=== PATIENT | female | born 1935 | race Caucasian/White ===

== ENCOUNTER 2021-03-10 08:22 | Inpatient (IN) ==
[2021-03-10] MEDS ORDERED: traZODone 50 MG TABLET PO PRN (18:22)
[2021-03-11] MEDS: *HR* OxyCODONE/APAP 5/325 TABLET PO PRN (01:12)
[2021-03-11 04:59] LABS: Basophils % 0.5 %; Eosinophils # 0.3 K/mcL (0.0-0.6); Eosinophils % 3.3 %; Hematocrit 39.1 % (35.3-44.9); Hemoglobin 12.6 g/dL (11.5-15.4); Immature Granulocytes % 0.5 % (0-4); Lymphocytes # 1.9 K/mcL (0.6-4.6); Lymphocytes % 24.7 %; Mean Corpuscular HGB Conc 32.2 g/dL (31.6-35.5); Mean Corpuscular Hemoglobin 29.4 pg (28.0-33.3); Mean Corpuscular Volume 91.1 fL (83.0-100.0); Mean Platelet Volume 10.3 fL (9.4-12.4); Monocytes # 0.8 K/mcL (0.0-1.3); Monocytes % 10.8 %; Neutrophils # 4.7 K/mcL (1.6-8.9); Platelet Count 142 K/mcL (140-400); Red Blood Count 4.29 M/mcL (3.82-4.97); Red Cell Distribution Width 13.4 % (11.5-14.5); Segmented Neutrophils % 60.2 %; White Blood Count 7.8 K/mcL (4.3-11.1)
[2021-03-11 05:15] LABS: Calcium 8.8 mg/dL (8.6-10.3); Potassium 4.9 mEq/L (3.5-5.1)
[2021-03-11] MEDS ORDERED: *HR* Enoxaparin 30 MG/0.3 ML SYRINGE SQ SCH (06:00)
[2021-03-11] MEDS: Cyanocobalamin (B-12) 1,000 MCG TABLET PO SCH (08:13)
[2021-03-11] MEDS: amLODIPine 5 MG TABLET PO SCH (08:13)
[2021-03-11] MEDS: Cholecalciferol (D-3) 1,000 UNIT (25MCG) TABLET PO SCH (08:13)
[2021-03-11] MEDS: Melatonin 3 MG TABLET PO PRN (20:20)
[2021-03-11] MEDS: traZODone 50 MG TABLET PO PRN (20:21)
[2021-03-12] MEDS: *HR* OxyCODONE/APAP 5/325 TABLET PO PRN ×3 (03:42→14:55)
[2021-03-12] MEDS: *HR* Enoxaparin 40 MG/0.4 ML SYRINGE SQ SCH (05:35)
[2021-03-12] MEDS: Cyanocobalamin (B-12) 1,000 MCG TABLET PO SCH (08:53)
[2021-03-12] MEDS: Cholecalciferol (D-3) 1,000 UNIT (25MCG) TABLET PO SCH (08:54)
[2021-03-12] MEDS: amLODIPine 5 MG TABLET PO SCH (08:54)
[2021-03-12] MEDS: polyethylene glycoL 3350 17 GM POWD.PACK PO PRN (15:19)
[2021-03-12] MEDS: Melatonin 3 MG TABLET PO PRN (20:12)
[2021-03-12] MEDS: traZODone 50 MG TABLET PO PRN (20:13)
[2021-03-12] MEDS: MOM Conc 10 ML UD.LIQ PO PRN (20:13)
[2021-03-13] MEDS: *HR* Enoxaparin 40 MG/0.4 ML SYRINGE SQ SCH (04:07)
[2021-03-13] MEDS: *HR* OxyCODONE/APAP 5/325 TABLET PO PRN ×3 (04:13→20:37)
[2021-03-13 05:14] LABS: Basophils # 0.1 K/mcL (0.0-0.2); Basophils % 0.9 %; Eosinophils # 0.2 K/mcL (0.0-0.6); Eosinophils % 2.1 %; Hematocrit 38.5 % (35.3-44.9); Hemoglobin 12.4 g/dL (11.5-15.4); Immature Granulocytes % 0.4 % (0-4); Lymphocytes # 1.7 K/mcL (0.6-4.6); Lymphocytes % 22.3 %; Mean Corpuscular HGB Conc 32.2 g/dL (31.6-35.5); Mean Corpuscular Volume 90.2 fL (83.0-100.0); Monocytes # 0.9 K/mcL (0.0-1.3); Monocytes % 11.1 %; Neutrophils # 4.8 K/mcL (1.6-8.9); Platelet Count 155 K/mcL (140-400); Red Blood Count 4.27 M/mcL (3.82-4.97); Red Cell Distribution Width 13.6 % (11.5-14.5); Segmented Neutrophils % 63.2 %; White Blood Count 7.7 K/mcL (4.3-11.1)
[2021-03-13 05:29] LABS: BUN/Creatinine Ratio 24 (6-26); Blood Urea Nitrogen 23 mg/dL (8-23); Calcium 8.7 mg/dL (8.6-10.3); Carbon Dioxide 29 mEq/L (23-29); Chloride 102 mEq/L (98-107); Glucose 124 mg/dL (70-105); Osmolality,Calculated 287 (280-300); Potassium 4.3 mEq/L (3.5-5.1); Sodium 136 mEq/L (136-145); eGFR For African Americans > 60 (> 60); eGFR For Non-African Americans 55 (> 60)
[2021-03-13] MEDS: Cholecalciferol (D-3) 1,000 UNIT (25MCG) TABLET PO SCH (09:11)
[2021-03-13] MEDS: amLODIPine 5 MG TABLET PO SCH (09:11)
[2021-03-13] MEDS: Cyanocobalamin (B-12) 1,000 MCG TABLET PO SCH (09:12)
[2021-03-13] MEDS: Melatonin 3 MG TABLET PO PRN (20:37)
[2021-03-13] MEDS: traZODone 50 MG TABLET PO PRN (20:38)
[2021-03-13] MEDS: MOM Conc 10 ML UD.LIQ PO PRN (20:39)
[2021-03-14] MEDS: *HR* OxyCODONE/APAP 5/325 TABLET PO PRN ×2 (05:42→15:10)
[2021-03-14] MEDS: *HR* Enoxaparin 40 MG/0.4 ML SYRINGE SQ SCH (05:45)
[2021-03-14] MEDS: Cyanocobalamin (B-12) 1,000 MCG TABLET PO SCH (08:24)
[2021-03-14] MEDS: amLODIPine 5 MG TABLET PO SCH (08:24)
[2021-03-14] MEDS: Cholecalciferol (D-3) 1,000 UNIT (25MCG) TABLET PO SCH (08:24)
[2021-03-14] MEDS: traZODone 50 MG TABLET PO PRN (21:23)
[2021-03-14] MEDS: Melatonin 3 MG TABLET PO PRN (21:24)
[2021-03-15] MEDS: *HR* Enoxaparin 40 MG/0.4 ML SYRINGE SQ SCH (05:32)
[2021-03-15] MEDS: amLODIPine 5 MG TABLET PO SCH (07:59)
[2021-03-15] MEDS: Cholecalciferol (D-3) 1,000 UNIT (25MCG) TABLET PO SCH (07:59)
[2021-03-15] MEDS: Cyanocobalamin (B-12) 1,000 MCG TABLET PO SCH (07:59)
[2021-03-15] MEDS: traZODone 50 MG TABLET PO PRN (20:02)
[2021-03-15] MEDS: Melatonin 3 MG TABLET PO PRN (20:02)
[2021-03-16] MEDS: *HR* Enoxaparin 40 MG/0.4 ML SYRINGE SQ SCH (05:31)
[2021-03-16] MEDS: amLODIPine 5 MG TABLET PO SCH (08:28)
[2021-03-16] MEDS: Cholecalciferol (D-3) 1,000 UNIT (25MCG) TABLET PO SCH (08:28)
[2021-03-16] MEDS: Cyanocobalamin (B-12) 1,000 MCG TABLET PO SCH (08:28)
[2021-03-16] MEDS: traZODone 50 MG TABLET PO PRN (21:13)
[2021-03-16] MEDS: Melatonin 3 MG TABLET PO PRN (21:13)
[2021-03-17] MEDS: *HR* Enoxaparin 40 MG/0.4 ML SYRINGE SQ SCH (06:52)
[2021-03-17] MEDS: MOM Conc 10 ML UD.LIQ PO PRN (09:21)
[2021-03-17] MEDS: amLODIPine 5 MG TABLET PO SCH (09:21)
[2021-03-17] MEDS: Cholecalciferol (D-3) 1,000 UNIT (25MCG) TABLET PO SCH (09:21)
[2021-03-17] MEDS: Cyanocobalamin (B-12) 1,000 MCG TABLET PO SCH (09:21)
[2021-03-17] MEDS ORDERED: ALPRAZolam 0.25 MG TABLET PO ONE (20:00)
[2021-03-18] MEDS: *HR* Enoxaparin 40 MG/0.4 ML SYRINGE SQ SCH (06:11)
[2021-03-18] MEDS: Cyanocobalamin (B-12) 1,000 MCG TABLET PO SCH (07:59)
[2021-03-18] MEDS: Cholecalciferol (D-3) 1,000 UNIT (25MCG) TABLET PO SCH (07:59)
[2021-03-18] MEDS: amLODIPine 5 MG TABLET PO SCH (07:59)
[2021-03-18] MEDS: Ibuprofen 600 MG TABLET PO PRN ×2 (07:59→20:48)
[2021-03-18] MEDS: polyethylene glycoL 3350 17 GM POWD.PACK PO PRN (07:59)
[2021-03-18] MEDS: *HR* OxyCODONE/APAP 5/325 TABLET PO PRN (15:51)
[2021-03-18] MEDS: Melatonin 3 MG TABLET PO PRN (20:48)
[2021-03-18] MEDS: traZODone 50 MG TABLET PO PRN (20:49)
[2021-03-19] MEDS: *HR* Enoxaparin 40 MG/0.4 ML SYRINGE SQ SCH (06:29)
[2021-03-19 06:42] VITALS: BP 129/62
[2021-03-19] MEDS: *HR* OxyCODONE/APAP 5/325 TABLET PO PRN (09:20)
[2021-03-19] MEDS: Cholecalciferol (D-3) 1,000 UNIT (25MCG) TABLET PO SCH (09:20)
[2021-03-19] MEDS: MOM Conc 10 ML UD.LIQ PO PRN (09:20)
[2021-03-19] MEDS: Cyanocobalamin (B-12) 1,000 MCG TABLET PO SCH (09:20)
[2021-03-19] MEDS: amLODIPine 5 MG TABLET PO SCH (09:21)
[2021-03-19] MEDS: polyethylene glycoL 3350 17 GM POWD.PACK PO PRN (09:21)
== END 2021-03-19 16:41 | DRG 561 ==
LOC: INPGRE 18:12
PROVIDERS: ADMIT Family Medicine; ATTEND Family Medicine